=== PATIENT | female | born 1960 | race Caucasian/White ===

== ENCOUNTER 2017-09-07 10:38 | Emergency (ER) | payer OTHER ==
[~2017-09-07] VITALS: Wt 89.4 kg
[~2017-09-07 10:38] MED LIST: CEPH-443 PO; HYDR-3498 PO; NAPR-260 PO; PHEN-538 PO
--- NOTE | 2017-09-07 11:45 | ERD ---
ER Documentation Chief Complaint Chief Complaint SWELLING INSIDE MOUTH/GUMS X4 DAYS, DENTAL PAIN HPI 57-year-old female who presents emergency department for gum swelling and toothache for 4 days. Denies headache, dizziness, blurry vision, pain on eye movement, ear pain, neck pain, throat pain, difficulty swallowing, shoulder pain, loss of appetite, chest pain, back pain, abdominal pain, nausea, vomiting, diarrhea, constipation , loss of bowel and bladder control, changes in bowel and bladder habits, recent long travel, recent antibiotic use in the last 3 months, fever, chills. Allergies to penicillin, colchicine, meloxicam. Past medical history of hypertension. Medication: Benazepril, metoprolol. No surgical history. Social : Not working at this time. Denies smoking, use of alcoholic beverages, use of illegal drugs. ROS All systems reviewed and are negative except as per history of present illness. Medications Home Meds Active Scripts Acetaminophen* (Tylophen*) 500 Mg Capsule, 1 CAP PO Q6H Y for PAIN AND OR ELEVATED TEMP, #20 CAP Prov:ORA DUENAS F 09/07/17 Clindamycin Hcl* (Clindamycin Hcl*) 300 Mg Capsule, 300 MG PO TID for 10 Days, CAP Prov:ZACHARY DUENASAR F 09/07/17 Hydrocodone Bit-Acetaminophen* ([place]*) 5-325 Mg Tab, 1 TAB PO Q6 Y for PAIN, # 10 TAB Prov:DAVID ROBERTS MD 03/10/16 Phenazopyridine Hcl* (Pyridium*) 200 Mg Tab, 200 MG PO TID Y for DYSURIA, #6 TAB Prov:SARAH DE MD 11/23/15 Cephalexin* (Keflex*) 500 Mg Capsule, 500 MG PO QID for 5 Days, CAP Prov:SARAH DE MD 11/23/15 Hydrocodone Bit-Acetaminophen* ([place]*) 5-325 Mg Tab, 1 TAB PO Q6 Y for PAIN, # 7 TAB Prov:ROSA RODRIGUEZ PA-C 07/05/15 Naproxen* (Naprosyn*) 500 Mg Tablet, 500 MG PO BID Y for PAIN AND/OR INFLAMMATION, #30 TAB Prov:ROSA RODRIGUEZ PA-C 07/05/15 Allergies Allergies: Coded Allergies: colchicine (Verified Allergy, Severe, SOB, 09/07/17) meloxicam (Verified Allergy, Severe, SOB, 09/07/17) Penicillins (Verified Allergy, Mild, 09/07/17) PMhx/Soc History of Surgery: Yes ("femoral") Anesthesia Reaction: No Hx Neurological Disorder: No Hx Respiratory Disorders: No Hx Cardiac Disorders: Yes (HTN) Hx Psychiatric Problems: No Hx Miscellaneous Medical Probl: Yes (ARTHRITIS) Hx Alcohol Use: No Hx Substance Use: No Hx Tobacco Use: No Physical Exam Vitals Vital Signs Date Time Temp Pulse Resp B/P Pulse Ox O2 Delivery O2 Flow Rate FiO2 09/07/17 10:46 98.7 88 17 143/64 97 Physical Exam Const: [] Head: Atraumatic Eyes: Normal Conjunctiva. Extraocular movement of her eyes is within normal limits. No pain in eye movement. ENT: Normal External Ears, Nose and Mouth. Right lower canine gum swelling and tender to palpation. Throat: Uvula is in midline and not displaced. Tonsils are +1 bilaterally without redness and without exudates. Tolerating secretions. Patent airway. Speaks full and clear sentences. No neck stiffness. Negative on Kernig sign. Negative on Brudzinski sign. No signs of meningeal irritation. Neck: Full range of motion..~ No meningismus. Resp: Clear to auscultation bilaterally Cardio: Regular rate and rhythm, no murmurs Abd: Soft, non tender, non distended. Normal bowel sounds Skin: No petechiae or rashes Back: No midline or flank tenderness Ext: No cyanosis, or edema Neur: Awake and alert. No neurological deficits. Ambulatory with steady gait. Romberg test negative. Psych: Normal Mood and Affect Procedures/MDM 57-year-old female who presents emergency department for gum swelling and toothache for 4 days. Denies headache, dizziness, blurry vision, pain on eye movement, ear pain, neck pain, throat pain, difficulty swallowing, shoulder pain, loss of appetite, chest pain, back pain, abdominal pain, nausea, vomiting, diarrhea, constipation , loss of bowel and bladder control, changes in bowel and bladder habits, recent long travel, recent antibiotic use in the last 3 months, fever, chills. Allergies to penicillin, colchicine, meloxicam. Past medical history of hypertension. Medication: Benazepril, metoprolol. No surgical history. Social : Not working at this time. Denies smoking, use of alcoholic beverages, use of illegal drugs. Physical exam: Extraocular movement of her eyes is within normal limits. No pain in eye movement. Right lower canine gum swelling and tender to palpation. Throat: Uvula is in midline and not displaced. Tonsils are +1 bilaterally without redness and without exudates. Tolerating secretions. Patent airway. Speaks full and clear sentences. No neck stiffness. Negative on Kernig sign. Negative on Brudzinski sign. No signs of meningeal irritation. No neurological deficits. Ambulatory with steady gait. Romberg test negative. Disease process was explained to the patient. She verbalized understanding and agreed with the plan of care. Differential diagnosis: Angioedema versus anaphylaxis versus peritonsillar abscess versus meningitis versus otitis media versus tooth abscess versus dental abscess Final diagnosis: Dental abscess Prescription: Clindamycin. Motrin. Follow-up with PCP in the next 24-48 hours. Follow-up with the dentist in the next 24-48 hours. Come back here in the emergency department for any new symptoms or any worsening of symptoms. All questions and concerns are answered. Patient verbalized understanding and agreed with the plan of care. Hemodynamically stable on discharge. Departure Diagnosis: Primary Impression: Abscess, dental Condition: Stable Additional Instructions: Follow-up with PCP in the next 24-48 hours. Follow-up with the dentist in the next 24-48 hours. Come back here in the emergency department for any new symptoms or any worsening of symptoms. All questions and concerns are answered. Patient verbalized understanding and agreed with the plan of care. ORA DUENAS Sep 07, 2017 11:45
[2017-09-07] MEDS ORDERED: CLIN-73 PO (11:46)
[2017-09-07] MEDS ORDERED: ACET500C5 PO (11:47)
== END 2017-09-07 12:08 | disposition home or self-care (01) ==
LOC: FTE 10:38
DX: K04.7 Periapical abscess without sinus (principal); I10 Essential (primary) hypertension
CPT/HCPCS: 99283

== ENCOUNTER 2017-12-19 06:13 | Day surgery (SDC) | END 2017-12-19 10:51 | disposition home or self-care (01) ==

== ENCOUNTER 2018-01-31 15:59 | Emergency (ER) | END 2018-01-31 16:52 | disposition home or self-care (01) ==

== ENCOUNTER 2018-03-09 13:06 | Emergency (ER) | END 2018-03-09 16:46 | disposition home or self-care (01) ==